=== PATIENT | female | born 1985 | race Caucasian/White ===

== ENCOUNTER 2019-01-27 08:01 | Inpatient (IN) | payer BC ==
[~2019-01-27] VITALS: Ht 157.5 cm; Wt 84.4 kg
[2019-01-27] MEDS ORDERED: OXYTOCIN/0.9 % SODIUM CHLORIDE 1,000 ML IV SCH (08:17)
[2019-01-27] MEDS ORDERED: TERBUTALINE SULFATE 1 MG/ML VIAL SUBCUT ONE (08:30)
[2019-01-27 08:46] LABS: BASOPHILS % (AUTO) 0.3 % (0.0-2.0); EOSINOPHILS # (AUTO) 0.1 K/uL (0.0-0.4); EOSINOPHILS % (AUTO) 1.1 % (0.0-4.0); HEMATOCRIT 39.4 % (36-48); HEMOGLOBIN 13.4 g/dL (12.0-16.0); LYMPHOCYTES # (AUTO) 1.6 K/uL (1.0-5.5); LYMPHOCYTES % (AUTO) 11.9 % (20.5-51.5); MEAN CORPUSCULAR HEMOGLOBIN 30 pg (27-31); MEAN CORPUSCULAR HGB CONC 34 % (32-36); MEAN CORPUSCULAR VOLUME 89 fL (79.0-98.0); MONOCYTES # (AUTO) 0.7 K/uL (0.0-1.0); MONOCYTES % (AUTO) 5.4 % (1.7-9.3); NEUTROPHILS # (AUTO) 10.8 K/uL (1.8-7.7); NEUTROPHILS % (AUTO) 81.3 % (40.0-70.0); PLATELET COUNT (AUTO) 215 K/uL (130-430); RED BLOOD CELL COUNT(AUTO) 4.44 MIL/uL (4.2-6.2); RED CELL DISTRIBUTION WIDTH 13.9 % (9.0-15.0); WHITE BLOOD COUNT (AUTO) 13.3 K/uL (4.8-10.8)
[2019-01-27] MEDS: LR 1,000 ML IV SCH ×2 (10:00→16:15)
[2019-01-27 11:09] VITALS: BP_SYST 122
[2019-01-27] MEDS ORDERED: DINOPROSTONE 10 MG SUPP VG ONE (12:30)
[2019-01-27] MEDS: NALBUPHINE HCL 10 MG/ML AMP IVP PRN ×2 (20:10→22:10)
[2019-01-28] MEDS: LR 1,000 ML IV SCH ×4 (00:27→19:45)
[2019-01-28] MEDS ORDERED: DINOPROSTONE 10 MG SUPP VG ONE (01:45)
[2019-01-28] MEDS: NALBUPHINE HCL 10 MG/ML AMP IVP PRN ×3 (02:10→06:14)
[2019-01-28] MEDS ORDERED: fentaNYL CITRATE/PF 100 MCG/2 ML AMP ONE (07:58)
[2019-01-28] MEDS ORDERED: ROPIVACAINE HCL/PF 0.2% 200 ML ONE (07:58)
[2019-01-28] MEDS ORDERED: LR 500 ML IV ONE (09:00)
[2019-01-28] MEDS ORDERED: fentaNYL CITRATE/PF 100 MCG/2 ML AMP EP ONE (09:00)
[2019-01-28] MEDS ORDERED: FENT2mCg/mL-ROPIVA0.2%/NS EPID 200 ML EP SCH (09:00)
[2019-01-28] MEDS ORDERED: ePHEDrine sulfate 50 MG/ML VIAL IVP PRN (09:00)
[2019-01-28] MEDS ORDERED: TEMAZEPAM 15 MG CAPSULE PO PRN (21:00)
[2019-01-28] MEDS ORDERED: OXYTOCIN/0.9 % SODIUM CHLORIDE 1,000 ML IV ONE (23:01)
[2019-01-28] MEDS ORDERED: WITCH HAZEL LEAF 1 MED.PAD MED.PAD TP PRN (23:15)
[2019-01-28] MEDS ORDERED: HYDROCORTISONE 0.5%, 28.35 GM TOPICAL CREAM TP PRN (23:15)
[2019-01-28] MEDS ORDERED: METHYLERGONOVINE MALEATE 0.2 MG TABLET PO PRN (23:15)
[2019-01-28] MEDS ORDERED: OXYCODONE/ACETAMINOPHEN 5-325 TABLET PO PRN ×2 (23:15)
[2019-01-28] MEDS ORDERED: ANUSOL 1 EA SUPP.RECT (PREPARATION H) RC PRN (23:15)
[2019-01-28] MEDS ORDERED: LANOLIN 7 GM OINT. TP PRN (23:15)
[2019-01-28] MEDS: IBUPROFEN 800 MG TABLET PO PRN (23:51)
[2019-01-28] MEDS: DERMOPLAST SPRAY TP PRN (23:51)
[2019-01-29] MEDS: DOCUSATE SODIUM 100 MG CAPSULE PO PRN ×3 (05:40→23:49)
[2019-01-29] MEDS: IBUPROFEN 800 MG TABLET PO PRN ×4 (05:40→23:49)
[2019-01-29 07:20] LABS: HEMATOCRIT 30.7 % (36-48); HEMOGLOBIN 10.5 g/dL (12.0-16.0)
[2019-01-29] MEDS ORDERED: ROPIVACAINE 40 MG/20 ML AMP EP ONE (14:58)
[2019-01-30] MEDS ORDERED: DIPH-TET-PERTUS Vaccine 0.5 ML VIAL (ADACEL) I.M. PRN (06:30)
[2019-01-30] MEDS: DERMOPLAST SPRAY TP PRN (07:12)
[2019-01-30] MEDS: DOCUSATE SODIUM 100 MG CAPSULE PO PRN (12:31)
[2019-01-30] MEDS: IBUPROFEN 800 MG TABLET PO PRN (12:31)
== END 2019-01-30 12:55 | disposition home or self-care (01) | DRG 807 ==
LOC: SMU 08:01 → SPU 08:09
PROVIDERS: ADMIT Obstetrics & Gynecology; ATTEND Obstetrics & Gynecology
PROC: 10E0XZZ Delivery of Products of Conception, External Approach (ICD-10-PCS; principal; 2019-01-27)
PROC: 3E0R3BZ Introduction of Anesthetic Agent into Spinal Canal, Percutaneous Approach (ICD-10-PCS; 2019-01-27)
PROC: 00HU33Z Insertion of Infusion Device into Spinal Canal, Percutaneous Approach (ICD-10-PCS; 2019-01-27)
DX: O24.429 Gestational diabetes mellitus in childbirth, unspecified control (principal); Z3A.41 41 weeks gestation of pregnancy; Z37.0 Single live birth; O99.214 Obesity complicating childbirth
CPT/HCPCS: 36415; 81002-TC; 85018-TC; 85025; 86592; 86886; 86900; 86901; 90715; J2300; J2590; J2795; J3010